=== PATIENT | male | born 1965 | race Caucasian/White ===

== ENCOUNTER → 2016-11-05 | Day surgery (SDC) | payer MEDICARE, OTHER | END | disposition home or self-care (01) | LOC: SDC 06:10 | DX: N13.2 Hydronephrosis with renal and ureteral calculous obstruction (principal); Q62.5 Duplication of ureter; M19.90 Unspecified osteoarthritis, unspecified site; I10 Essential (primary) hypertension; F17.210 Nicotine dependence, cigarettes, uncomplicated; Z79.82 Long term (current) use of aspirin; Z79.899 Other long term (current) drug therapy; Z87.442 Personal history of urinary calculi | CPT/HCPCS: C1894; C2617; J1885; J2704; Q9967 ==